=== PATIENT | female | born 1955 | race African-American/Black ===

== ENCOUNTER 2016-06-18 11:00 | Emergency (ER) | payer MEDICARE, OTHER ==
[~2016-06-18] VITALS: Ht 170.2 cm; Wt 180.1 kg
[~2016-06-18 11:00] MED LIST: ALBUTEROL2.5 MG/NEB IN; BACLOFEN 10MG T10 MG PO; BACTRIM DS 8001 TA1 PO; DEXAMETHASONE 4M4 MG PO; DULERA1 ARO IH; FLONASE 50 MCG16 GM; GABAPENTIN 600600 MG PO; GABAPENTIN300 M1 PO; HYDROCHLOROTHIA25 M1 PO; HYDROCODONE-APA1 TA1 PO; IBUPROFEN400 MG PO; IPRATROPIUM BROM3 M1 IH; KEFLEX500 M1 PO; LIPITOR40 MG PO; LISINOPRIL 10MG10 MG PO; LISINOPRIL HCTZ1 TAB PO; LORATADINE 10MG10 M1 PO; LOSARTAN POTAS100 MG PO; METFORMIN500 MG PO; PRILOSEC20 M1 PO; SINGULAIR10 MG PO; TYLENOL ES500 M1 PO; TYLENOL W/CODEI1 TA2 PO
--- NOTE | 2016-06-18 11:15 | Emergency Room Report ---
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 Clinical Suspician of Infection? Mental Status: Sepsis Risk: Have you (or family members/close friends) recently traveled outside the [place]? If Yes, where/when: Have you had exposure to infectious disease within the past month? TB? Other? Specify: Miss lam is 60 years old white female she is nondiabetic she was seen 2 days ago and was prescribed antibiotics, she started on this morning and she claims to be not better. Emesis was brought to the ED and her temperature is 99.1. Otherwise she has no specific complaints. Patient denies having fever nausea vomiting diarrhea but she just is not feeling well. Source patient, RN notes reviewed, caregiver ALLERGIES Coded Allergies: aspirin (06/16/16) latex (06/16/16) morphine (06/18/16) Home Medications Active Scripts SULFAMETHOXAZOLE W/TRIMETHOPRI (Bactrim Ds Tab) 1 TABLET PO BID #14 TAB Prov: 06/15/16 Reported Medications Fluticasone Propionate (Flonase 50 Mcg Nasal [place]) 1 SPRAY NA BID #1 BOT HYDROCODONE 5MG/APAP 325MG (Hydrocodon-Acetaminophen 5-325) 1 TAB PO TIDP PRN PAIN ALBUTEROL (Albuterol 0.083% Neb) 2.5 MG IN Q6H6 Gabapentin (Gabapentin 600MG) 600 MG PO QID IBUPROFEN MICRONIZED (IBUPROFEN 400MG) 400 MG PO Q6HP PRN PAIN HYDROCHLOROTHIAZIDE (Hydrochlorothiazide) 25 MG PO BID Dexamethasone (Dexamethasone 4MG Tab) 4 MG FT Atorvastatin Calcium (Lipitor 20MG) 40 MG PO DAILY OMEPRAZOLE MAGNESIUM (Prilosec 20MG) 20 MG PO DAILY ERGOCALCIFEROL (VITAMIN D2) (Vitamin D2) 50,000 IUNITS PO DAILY #5 FLUTICASONE/VILANTEROL (Breo Ellipta 100-25 Mcg INH) 1 POW IH DAILY ALBUTEROL (Ventolin Hfa) 1 PUFF IH Q6H6 PRN BREATHING Insulin Glargine (Lantus Insulin Vial) 60 UNITS SC DAILY Insulin Lispro (Humalog Kwikpen) 8 UNIT SQ AFTERMEALS PRN DIABETES History Medical History General Angina: No DC: No Hypertension? Yes Hyperlipidemia? Yes CHF? No COPD? No Asthma? Yes Hernia? Yes CVA? No Seizures? No Diabetes? Yes Insulin Dependent: No Insulin Pump: No Home FSBS? Yes End Stage Renal Disease? No UTI? Yes Stones? No GB Disease: No Nephritic Syndrome? No Asplenia? No Hepatitis? No Sickle Cell Disease? No Cataracts? No Glaucoma? No MRSA? No TB? No Cancer? Yes Immunization Hx DT/Tetanus Unknown Flu Refused Pneumonia Received In Past Surgical Hx Previous Surgery?Y UMBILICAL HERNIA CYST REMOVED LT BREAST D & C Family History Family Hx Diabetes Yes CAD Yes Hypertension Yes Hyperlipidemia Yes Cancer Yes TB No Social History Alcohol Alcohol: No Review of Systems All Other Systems Reviewed and Negative Constitutional see HPI Eyes no symptoms reported ENT no symptoms reported. Respiratory no symptoms reported Cardiovascular no symptoms reported Gastrointestinal no symptoms reported Genitourinary no symptoms reported. Musculoskeletal no symptoms reported Skin no symptoms reported Psychiatric/Neurological no symptoms reported Physical Exam Vital Signs Vital Signs Date Time Temp Pulse Resp B/P Pulse O2 O2 Flow FiO2 Ox Delivery Rate 06/18 1158 105 22 147/90 92 6 06/18 1101 99.1 107 22 137/97 90 6 - WBC >12,000 or <4,000 or 10% bands? 2 or more SIRS Criteria Met? B/P: MAP: Creatinine >2.0? UA output<0.5ml/kg/hr for 2 hrs? Platelet count >100,000? Lactate >2.0mmol/1? INR >1.2 or PTT > than 60 sec? Evidence of Organ Dysfunction? Provider documented clinical suspician of infection? Sepsis Criteria Count: Sepsis Risk: General Appearance normal appearance, WD/WN Eye Exam - bilateral eye normal exam, bilateral eye PERRL, bilateral eye EOMI Ear, Nose, Throat hearing grossly normal, normal ENT inspection Neck normal inspection, non-tender, supple, full range of motion Respiratory Status Yes: trachea midline, chest symmetrical, non tender chest. No: respiratory distress. Lung Sounds bilateral: normal breath sounds, lungs clear. Cardiovascular normal exam, regular rate/rhythm, no peripheral edema, no gallop, no JVD, no murmur, no rub, normal peripheral pulses Peripheral Pulses Pulses normal Yes Gastrointestinal normal bowel sounds, normal exam, non tender, soft, no organomegaly Neurologic alert, occupational health and safety adviser II-XII nml as tested, normal exam, oriented x 3 Skin intact, skin is intact she has some flakness in the middle line avoe the spine, There is no loss of skin. No bedsores seen at the sacral and gluteal region. Medical Decision Making LABS/Meds/Orders Pt receiving controlled substance in ED? No Results/Orders Laboratory Tests 06/18/16 1120: Lactic Acid 0.7 06/18/16 112: Sodium 144, Potassium 3.3 L, Chloride 100, Carbon Dioxide 44 *H, BUN 6 L, Creatinine 0.4 L, Estimated Creat Clear 415 H, Estimated GFR (MDRD) 162, Glucose 66 L, Calcium 8.9, Total Bilirubin 0.5, AST 7 L, ALT 16, Alkaline Phosphatase 58, Total Protein 6.1 L, Albumin 2.1 L, Globulin 4.0 H, Albumin/ Globulin Ratio 0.5 L, WBC 7.1, RBC 4.23, Hgb 12.1 L, Hct 38.7, MCV 91.5, RDW 12.9, Plt Count 264, MPV 6.1 L, Gran % 74.7, Gran # 5.3, Lymphocytes % 16.5, Monocytes % 6.6, Eosinophils % 2.0, Basophils % 0.2, Lymphocytes # 1.2, Monocytes # 0.5, Eosinophils # 0.1, Basophils # 0.0, PUBS MCHC 31.2 L, MCH 28.5 Current Medication Orders Sig/Gary Start time Last Medication Dose Route Stop Time Status Admin Potassium Chloride 40 MEQ ONCE ONE 06/18 1230 AC PO 06/18 1231 Sodium Chloride 500 ML .Q1H 06/18 1130 DC 06/18 IV 06/18 1229 1132 Sodium Chloride 10 ML PRN PRN 06/18 1130 AC IV 06/19 1119 Sodium Chloride 500 ML .STK-MED ONE 06/18 1129 DC IV Orders Procedure Date/time Status OP COURTSEY MEAL 06/18 1214 Active CULTURE, BLOOD 06/18 111 Active LACTIC ACID 06/18 111 Complete CBC WITH AUTO DIFF 06/18 1116 Complete CHEM 12 PROFILE 06/18 111 Complete Departure Departure Time of Disposition 1114 Disposition DC Home or Self Care(routine) Clinical Impression Primary Impression: UTI (urinary tract infection) Qualifiers: Urinary tract infection type: acute cystitis Secondary Impressions: Diabetes Qualifiers: Diabetes mellitus type: type 2 Non compliance w medication regimen Obesity Condition STABLE Referrals Ayden Barboza MD (Family) Additional Instructions The patient was here 2 days ago she was prescribed antibiotics that she obtained this morning and she started on them.. the patient lives alone with home health nurses. She is a candidate for fpc with pay. She has been trying to be admitted for 3 days so she can obtain Free fpc. Her labs were within normal limits and urine culture was positive for E. coli that sensitive to Bactrim and she already has the medicine. At this point the patient does not meet criteria for admission and she will be discharged back to her house. Discharge Counseling Counseled pt/family regarding diagnosis, test results, medications/RX, home care, follow up needs ED Critical Care Critical Care No If Critical Care minutes are documented, the time involved in the performance of seperately reportable procedures was not counted toward critical care time documented. I directly delivered medical care to this critically ill and/or injured patient. Timely evaluation and treatment was necessary to address the significant organ system(s) dysfunction present in this patient. at 1230
[2016-06-18] MEDS ORDERED: VITAMIN D50000 I1 PO (11:33)
[2016-06-18] MEDS ORDERED: BREO ELLIPTA1 POW IH (11:34)
[2016-06-18] MEDS ORDERED: VENTOLIN H0.09 MG/AC IH (11:35)
[2016-06-18 11:37] LABS: HEMOGLOBIN 12.1 g/dL (12.2-16.2); LYMPH # 1.2 K/mm3 (0.7-4.5); LYMPH % 16.5 % (10-50.0)
[2016-06-18] MEDS ORDERED: LANTUS INS100 UNITS/ SC (11:37)
[2016-06-18] MEDS ORDERED: HUMALOG KW100 UNIT/1 SQ (11:38)
[2016-06-18 14:01] VITALS: BP 160/85
[2016-06-25] MEDS ORDERED: HYDROCODONE-APA1 TA1 PO (08:40)
[2016-06-25] MEDS ORDERED: LASIX 40MG. TAB40 MG PO (08:40)
[2016-06-25] MEDS ORDERED: HYDROXYZINE 25M25 MG PO (08:40)
[2016-06-25] MEDS ORDERED: IPRATROPIUM BROM3 M1 IH (08:40)
[2016-06-25] MEDS ORDERED: KLOR-CON M2020 MEQ PO (12:45)
== END 2016-06-18 14:01 | disposition home or self-care (01) ==
LOC: ER 11:00
PROVIDERS: Emergency Medicine
DX: N30.00 Acute cystitis without hematuria (principal); E11.649 Type 2 diabetes mellitus with hypoglycemia without coma

== ENCOUNTER 2016-12-22 11:20 | Emergency (ER) | payer MEDICARE, OTHER ==
[~2016-12-22] VITALS: Ht 172.7 cm; Wt 190.5 kg
[~2016-12-22 11:20] MED LIST changes: +BREO ELLIPTA1 POW IH; +HUMALOG KW100 UNIT/1 SQ; +HYDROXYZINE 25M25 MG PO; +KLOR-CON M2020 MEQ PO; +LANTUS INS100 UNITS/ SC; +LASIX 40MG. TAB40 MG PO; +VENTOLIN H0.09 MG/AC IH; +VITAMIN D50000 I1 PO
--- NOTE | 2016-12-22 11:45 | Emergency Room Report ---
History of Present Illness Time Seen by [id number] Presenting Problem in Triage Pt arrived:Ambulance Stretcher Presenting Problem:PT SENT FROM [facility] WITH SOA. PT ADVISES SHE THINKS SHE HAS PNEUMONIA. SATS AT [facility] IN THE 80'S UPON ARRIVAL ON 4LPM SATS 95% Onset of symptoms date/time:/ or onset unknown for:MEDICAL HX UNKNOWN Treatment Prior to Arrival: PT O2 BUMPED FROM 3LPM TO 6LPM. ALBUTEROL TREATMENT GIVEN MOLD SETTER AT [facility] MOLD SETTER Provided by:GOLF MANAGER Sepsis Risk Assessment: Temp: B/P: 125/71 MAP: 89 Pulse: 99 Resp: 20 Recent fever? N Clinical Suspician of Infection? N Mental Status: 1 - Regular (Normal Baseline) Sepsis Risk:Possible Sepsis Risk Have you (or family members/close friends) recently traveled outside the [place]? N If Yes, where/when: Have you had exposure to infectious disease within the past month? N TB? Other? Specify: Source patient, RN notes reviewed, RN/MD, EMS notes reviewed, group home records Exam Limitations no limitations Comment This is a 61-year-old Afro-Chinese lady brought in by ambulance from group home with shortness of breath. intermediate staff believes that her pulse ox was in the 80s, prior to transfer to the emergency room. Upon arrival to the emergency room patient's pulse ox on 4 L/m (which patient is currently on) is 95 percent. Patient is only short of breath. Patient concerned that she may have pneumonia since she has had similar symptoms in the past associated with this diagnoses. ALLERGIES Coded Allergies: aspirin (06/16/16) latex (06/16/16) morphine (06/18/16) Home Medications Active Scripts Hydroxyzine Pamoate (Hydroxyzine) 25 MG PO Q6HP PRN ANXIETY #60 CAPSULE Prov: 06/25/16 HYDROCODONE 5MG/APAP 325MG (Hydrocodon-Acetaminophen 5-325) 1 TAB PO TIDP PRN PAIN #90 TAB Prov: 06/25/16 Furosemide (Lasix 40MG) 40 MG PO DAILY #30 TAB Prov: 06/25/16 ALBUTEROL-IPRATROPIUM (Iprat-Albut 0.5-3(2.5) MG/3 Ml) 3 ML IH QID #120 NEB Prov: 06/25/16 Potassium Chloride (Klor-Con M20) 20 MEQ PO BID #60 TAB Prov: 06/25/16 Reported Medications Dexamethasone (Dexamethasone 4MG Tab) 4 MG PO DAILY Atorvastatin Calcium (Atorvastatin) 40 MG PO QHS ERGOCALCIFEROL (VITAMIN D2) (Vitamin D2) 50,000 IUNITS PO MONTHLY #5 CAPSULE FLUTICASONE/VILANTEROL (Breo Ellipta 100-25 Mcg INH) 1 POW IH DAILY Insulin Glargine (Lantus Insulin Vial) 60 UNITS SC DAILY Fluticasone Propionate (Flonase 50 Mcg Nasal [place]) 1 SPRAY NA BID #1 BOT Gabapentin (Gabapentin 600MG) 600 MG PO QID IBUPROFEN MICRONIZED (IBUPROFEN 400MG) 400 MG PO Q6HP PRN PAIN OMEPRAZOLE MAGNESIUM (Prilosec 20MG) 20 MG PO DAILY History Medical History General CAD? No Angina: No MD: No Hypertension? Yes Hyperlipidemia? Yes CHF? No DVT? No PE? No COPD? No Asthma? Yes Anemia? No GERD? Yes Gastric ulcers? No GI Bleed? No Hernia? Yes Thyroid Problems? No Hypothyroidism? No CVA? No Seizures? No Diabetes? Yes Insulin Dependent: Yes Insulin Pump: No Home FSBS? Yes End Stage Renal Disease? No UTI? Yes Stones? No GB Disease: No Nephritic Syndrome? No Asplenia? No Hepatitis? No Sickle Cell Disease? No Arthritis? Yes Migraines? No Cataracts? No Glaucoma? No MRSA? No HIV? No TB? No Anxiety? No Depression? No Cancer? No Immunization Hx DT/Tetanus Unknown Flu Refused Pneumonia Never Had Surgical Hx Previous Surgery?Y UMBILICAL HERNIA CYST REMOVED LT BREAST D & C Family History Family Hx Diabetes Yes CAD Yes Hypertension Yes Hyperlipidemia Yes Cancer Yes TB No Social History Smoking Hx Smoker: Unknown if Ever Smoked Tobacco: No Packs/day N/A Alcohol Alcohol: No Review of Systems All Other Systems Reviewed and Negative Respiratory shortness of breath Physical Exam Vital Signs Vital Signs Date Time Temp Pulse Resp B/P Pulse O2 O2 Flow FiO2 Ox Delivery Rate 12/22 1423 85 20 122/60 95 4 12/22 1245 91 20 120/67 95 4 12/22 1121 99 20 125/71 95 6 General Appearance normal appearance, WD/WN, no apparent distress, morbidly obese, patient is bedridden, difficult to assess if she has any peripheral edema due to body habitus Neck normal inspection, non-tender, supple, full range of motion Respiratory Status Yes: trachea midline, chest symmetrical, non tender chest. No: respiratory distress. Lung Sounds bilateral: normal breath sounds, lungs clear. 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 No Comment Patient does not appear to be hypoxic despite initial group home assessment. Patient is actually no distress at current time. Advised patient of results obtained, consistent with congestive heart failure, needs to increase the Lasix per discharge instructions and follow-up with PCP within 2 days. Results/Orders Laboratory Tests 12/22/16 1240: Urine Color YELLOW, Urine Appearance CLEAR, Urine pH 8.5, Ur Specific [place] 1.015, Urine Protein NEGATIVE, Urine Ketones NEGATIVE, Urine Blood NEGATIVE, Urine Nitrate NEGATIVE, Urine Bilirubin NEGATIVE, Urine Urobilinogen 1.0, Ur Leukocyte Esterase NEGATIVE, Urine RBC NONE, Urine WBC OCC, Ur Squamous Epith Cells OCC, Urine Bacteria TRACE, Urine Glucose NEGATIVE 12/22/16 1130: Lactic Acid 1.2 12/22/16 1130: Creatine Kinase 51, CK-MB (CK-2) Rel Index 2.9, CK and CKMB Interp 1.5, Troponin I < 0.02 12/22/16 1130: B-Natriuretic Peptide 16 12/22/16 1130: Sodium 145, Potassium 3.8, Chloride 99, Carbon Dioxide 47 *H, BUN 10, Creatinine 0.5 L, Estimated Creat Clear 346 H, Estimated GFR (MDRD) 125, Glucose 145 H, Calcium 8.2 L, Total Bilirubin 0.4, AST 13 L, ALT 17, Alkaline Phosphatase 70, Total Protein 6.1 L, Albumin 2.8 L, Globulin 3.3 H, Albumin/Globulin Ratio 0.8 L, WBC 7.4, RBC 4.27, Hgb 11.8 L, Hct 39.4, MCV 92.2, RDW 12.9, Plt Count 246, MPV 7.5, Gran % 76.8, Gran # 5.7, Lymphocytes % 13.7, Monocytes % 5.2, Eosinophils % 3.8, Basophils % 0.5, Lymphocytes # 1.0, Monocytes # 0.4, Eosinophils # 0.3, Basophils # 0.0, PUBS MCHC 29.9 L, MCH 27.6 Current Medication Orders Sig/Gary Start time Last Medication Dose Route Stop Time Status Admin Hydromorphone HCl 0.25 MG ONCE ONE 12/22 1430 CANr IV 12/22 1431 Ondansetron HCl 4 MG ONCE ONE 12/22 1430 CAN IV 12/22 1431 Gabapentin 600 MG ONCE ONE 12/22 1400 CAN PO 12/22 1401 Hydrocodone Bitart/ 0.5 TAB ONCE ONE 12/22 1400 CANr Acetaminophen PO 12/22 1401 Sodium Chloride 10 ML PRN PRN 12/22 1130 DCD IV 12/23 1123 Orders Procedure Date/time Status OP COURTSEY MEAL 12/22 1259 Active URINARY CATHETER INSERT 12/22 1247 Active URINALYSIS/COMPLETE 12/22 1247 Complete ELECTROCARDIOGRAM REQUEST 12/22 1213 Active CARDIAC ENZYMES 12/22 1213 Complete BRAIN NATRIURETIC PEPTIDE 12/22 1211 Complete IV SALINE LOCK 12/22 1123 Active CULTURE, BLOOD 12/22 1123 Active LACTIC ACID 12/22 1123 Complete CBC WITH AUTO DIFF 12/22 1123 Complete CHEM 12 PROFILE 12/22 1123 Complete 12 LEAD EKG-MIROSLAVA (INITIAL) 12/22 UNK Active CM/EKG CM/territory account manager Rhythm Normal Sinus Rhythm Rate 88 Ectopy No Comments No acute ischemic changes EKG rate, NSR, rhythm, no evid. of ischemic chgs, no ectopy, normal QRS, normal [place], normal EKG, no EKG for comparison, non-spec. ST/Twave chgs, ST elevation, ST depression, LBBB, RBBB, ectopy, abnormal Q waves XRAY/CT/US XRAY/CT/US XRAY chest XR interpretation by reviewed by me Xray Results cardiac medically, mild congestive heart failure, per radiologist Departure Departure Time of Disposition 1330 Disposition DC Home or Self Care(routine) Clinical Impression Primary Impression: CHF exacerbation Qualifiers: Congestive heart failure type: systolic Qualified Code: I50.23 - Acute on chronic systolic (congestive) heart failure Condition STABLE Referrals Ayden Barboza MD (Family): 2 Days-Call Office if not better Juancarlos Rand MD: Tomorrow-Call Office Patient Instructions DI for Heart Failure Additional Instructions Please increase the Lasix from 40 mg 1x/day to 40mg one pill in AM, and 1/2 pill (20mg) in the afternoon for the next 3 days. Return to lasix 40mg daily afterwards. Please follow up with Dr Barboza within 2 days. Discharge Counseling Counseled pt/family regarding diagnosis, test results, medications/RX, home care, follow up needs Comment Please increase the Lasix from 40 mg 1x/day to 40mg one pill in AM, and 1/2 pill (20mg) in the afternoon for the next 3 days. Return to lasix 40mg daily afterwards. Please follow up with Dr Barboza within 2 days. ED Critical Care Critical Care No at [id number]
--- NOTE | 2016-12-22 11:45 | Emergency Room Report ---
History of Present Illness Time Seen by [id number] Presenting Problem in Triage Pt arrived:Ambulance Stretcher Presenting Problem:PT SENT FROM [facility] HOME WITH SOA. PT ADVISES SHE THINKS SHE HAS PNEUMONIA. SATS AT [facility] IN THE 80'S UPON ARRIVAL ON 4LPM SATS 95% Onset of symptoms date/time:/ or onset unknown for:MEDICAL HX UNKNOWN Treatment Prior to Arrival: PT O2 BUMPED FROM 3LPM TO 6LPM. ALBUTEROL TREATMENT GIVEN FOOD BROKER AT [facility] FOOD BROKER Provided by:CERTIFIED NUCLEAR MEDICINE TECHNOLOGIST Sepsis Risk Assessment: Temp: B/P: 125/71 MAP: 89 Pulse: 99 Resp: 20 Recent fever? N Clinical Suspician of Infection? N Mental Status: 1 - Regular (Normal Baseline) Sepsis Risk:Possible Sepsis Risk Have you (or family members/close friends) recently traveled outside the [place]? N If Yes, where/when: Have you had exposure to infectious disease within the past month? N TB? Other? Specify: Source patient, RN notes reviewed, RN/MD, EMS notes reviewed, intermediate records Exam Limitations no limitations Comment This is a 61-year-old Afro-Greek lady brought in by ambulance from intermediate with shortness of breath. [facility] staff believes that her pulse ox was in the 80s, prior to transfer to the emergency room. Upon arrival to the emergency room patient's pulse ox on 4 L/m (which patient is currently on) is 95 percent. Patient is only short of breath. Patient concerned that she may have pneumonia since she has had similar symptoms in the past associated with this diagnoses. ALLERGIES Coded Allergies: aspirin (06/16/16) latex (06/16/16) morphine (06/18/16) Home Medications Active Scripts Hydroxyzine Pamoate (Hydroxyzine) 25 MG PO Q6HP PRN ANXIETY #60 CAPSULE Prov: 06/25/16 HYDROCODONE 5MG/APAP 325MG (Hydrocodon-Acetaminophen 5-325) 1 TAB PO TIDP PRN PAIN #90 TAB Prov: 06/25/16 Furosemide (Lasix 40MG) 40 MG PO DAILY #30 TAB Prov: 06/25/16 ALBUTEROL-IPRATROPIUM (Iprat-Albut 0.5-3(2.5) MG/3 Ml) 3 ML IH QID #120 NEB Prov: 06/25/16 Potassium Chloride (Klor-Con M20) 20 MEQ PO BID #60 TAB Prov: 06/25/16 Reported Medications Dexamethasone (Dexamethasone 4MG Tab) 4 MG PO DAILY Atorvastatin Calcium (Atorvastatin) 40 MG PO QHS ERGOCALCIFEROL (VITAMIN D2) (Vitamin D2) 50,000 IUNITS PO MONTHLY #5 CAPSULE FLUTICASONE/VILANTEROL (Breo Ellipta 100-25 Mcg INH) 1 POW IH DAILY Insulin Glargine (Lantus Insulin Vial) 60 UNITS SC DAILY Fluticasone Propionate (Flonase 50 Mcg Nasal [place]) 1 SPRAY NA BID #1 BOT Gabapentin (Gabapentin 600MG) 600 MG PO QID IBUPROFEN MICRONIZED (IBUPROFEN 400MG) 400 MG PO Q6HP PRN PAIN OMEPRAZOLE MAGNESIUM (Prilosec 20MG) 20 MG PO DAILY History Medical History General CAD? No Angina: No [place]: No Hypertension? Yes Hyperlipidemia? Yes CHF? No DVT? No PE? No COPD? No Asthma? Yes Anemia? No GERD? Yes Gastric ulcers? No GI Bleed? No Hernia? Yes Thyroid Problems? No Hypothyroidism? No CVA? No Seizures? No Diabetes? Yes Insulin Dependent: Yes Insulin Pump: No Home FSBS? Yes End Stage Renal Disease? No UTI? Yes Stones? No GB Disease: No Nephritic Syndrome? No Asplenia? No Hepatitis? No Sickle Cell Disease? No Arthritis? Yes Migraines? No Cataracts? No Glaucoma? No MRSA? No HIV? No TB? No Anxiety? No Depression? No Cancer? No Immunization Hx DT/Tetanus Unknown Flu Refused Pneumonia Never Had Surgical Hx Previous Surgery?Y UMBILICAL HERNIA CYST REMOVED LT BREAST D & C Family History Family Hx Diabetes Yes CAD Yes Hypertension Yes Hyperlipidemia Yes Cancer Yes TB No Social History Smoking Hx Smoker: Unknown if Ever Smoked Tobacco: No Packs/day N/A Alcohol Alcohol: No Review of Systems All Other Systems Reviewed and Negative Respiratory shortness of breath Physical Exam Vital Signs Vital Signs Date Time Temp Pulse Resp B/P Pulse O2 O2 Flow FiO2 Ox Delivery Rate 12/22 1423 85 20 122/60 95 4 12/22 1245 91 20 120/67 95 4 12/22 1121 99 20 125/71 95 6 General Appearance normal appearance, WD/WN, no apparent distress, morbidly obese, patient is bedridden, difficult to assess if she has any peripheral edema due to body habitus Neck normal inspection, non-tender, supple, full range of motion Respiratory Status Yes: trachea midline, chest symmetrical, non tender chest. No: respiratory distress. Lung Sounds bilateral: normal breath sounds, lungs clear. 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 No Comment Patient does not appear to be hypoxic despite initial intermediate assessment. Patient is actually no distress at current time. Advised patient of results obtained, consistent with congestive heart failure, needs to increase the Lasix per discharge instructions and follow-up with PCP within 2 days. Results/Orders Laboratory Tests 12/22/16 1240: Urine Color YELLOW, Urine Appearance CLEAR, Urine pH 8.5, Ur Specific [place] 1.015, Urine Protein NEGATIVE, Urine Ketones NEGATIVE, Urine Blood NEGATIVE, Urine Nitrate NEGATIVE, Urine Bilirubin NEGATIVE, Urine Urobilinogen 1.0, Ur Leukocyte Esterase NEGATIVE, Urine RBC NONE, Urine WBC OCC, Ur Squamous Epith Cells OCC, Urine Bacteria TRACE, Urine Glucose NEGATIVE 12/22/16 1130: Lactic Acid 1.2 12/22/16 1130: Creatine Kinase 51, CK-MB (CK-2) Rel Index 2.9, CK and CKMB Interp 1.5, Troponin I < 0.02 12/22/16 1130: B-Natriuretic Peptide 16 12/22/16 1130: Sodium 145, Potassium 3.8, Chloride 99, Carbon Dioxide 47 *H, BUN 10, Creatinine 0.5 L, Estimated Creat Clear 346 H, Estimated GFR (MDRD) 125, Glucose 145 H, Calcium 8.2 L, Total Bilirubin 0.4, AST 13 L, ALT 17, Alkaline Phosphatase 70, Total Protein 6.1 L, Albumin 2.8 L, Globulin 3.3 H, Albumin/Globulin Ratio 0.8 L, WBC 7.4, RBC 4.27, Hgb 11.8 L, Hct 39.4, MCV 92.2, RDW 12.9, Plt Count 246, MPV 7.5, Gran % 76.8, Gran # 5.7, Lymphocytes % 13.7, Monocytes % 5.2, Eosinophils % 3.8, Basophils % 0.5, Lymphocytes # 1.0, Monocytes # 0.4, Eosinophils # 0.3, Basophils # 0.0, PUBS MCHC 29.9 L, MCH 27.6 Current Medication Orders Sig/Gary Start time Last Medication Dose Route Stop Time Status Admin Hydromorphone HCl 0.25 MG ONCE ONE 12/22 1430 CANr IV 12/22 1431 Ondansetron HCl 4 MG ONCE ONE 12/22 1430 CAN IV 12/22 1431 Gabapentin 600 MG ONCE ONE 12/22 1400 CAN PO 12/22 1401 Hydrocodone Bitart/ 0.5 TAB ONCE ONE 12/22 1400 CANr Acetaminophen PO 12/22 1401 Sodium Chloride 10 ML PRN PRN 12/22 1130 DCD IV 12/23 1123 Orders Procedure Date/time Status OP COURTSEY MEAL 12/22 1259 Active URINARY CATHETER INSERT 12/22 1247 Active URINALYSIS/COMPLETE 12/22 1247 Complete ELECTROCARDIOGRAM REQUEST 12/22 1213 Active CARDIAC ENZYMES 12/22 1213 Complete BRAIN NATRIURETIC PEPTIDE 12/22 1211 Complete IV SALINE LOCK 12/22 1123 Active CULTURE, BLOOD 12/22 1123 Active LACTIC ACID 12/22 1123 Complete CBC WITH AUTO DIFF 12/22 1123 Complete CHEM 12 PROFILE 12/22 1123 Complete 12 LEAD EKG-MIROSLAVA (INITIAL) 12/22 UNK Active CM/EKG CM/projector operator Rhythm Normal Sinus Rhythm Rate 88 Ectopy No Comments No acute ischemic changes EKG rate, NSR, rhythm, no evid. of ischemic chgs, no ectopy, normal QRS, normal TN, normal EKG, no EKG for comparison, non-spec. ST/Twave chgs, ST elevation, ST depression, LBBB, RBBB, ectopy, abnormal Q waves XRAY/CT/US XRAY/CT/US XRAY chest XR interpretation by reviewed by me Xray Results cardiac medically, mild congestive heart failure, per radiologist Departure Departure Time of Disposition 1330 Disposition DC Home or Self Care(routine) Clinical Impression Primary Impression: CHF exacerbation Qualifiers: Congestive heart failure type: systolic Qualified Code: I50.23 - Acute on chronic systolic (congestive) heart failure Condition STABLE Referrals Ayden Barboza MD (Family): 2 Days-Call Office if not better Juancarlos Rand MD: Tomorrow-Call Office Patient Instructions DI for Heart Failure Additional Instructions Please increase the Lasix from 40 mg 1x/day to 40mg one pill in AM, and 1/2 pill (20mg) in the afternoon for the next 3 days. Return to lasix 40mg daily afterwards. Please follow up with Dr Barboza within 2 days. Discharge Counseling Counseled pt/family regarding diagnosis, test results, medications/RX, home care, follow up needs Comment Please increase the Lasix from 40 mg 1x/day to 40mg one pill in AM, and 1/2 pill (20mg) in the afternoon for the next 3 days. Return to lasix 40mg daily afterwards. Please follow up with Dr Barboza within 2 days. ED Critical Care Critical Care No at [id number]
--- NOTE | 2016-12-22 11:54 | RADIOLOGY REPORT PS360 ---
CHEST-PORTABLE HISTORY: Shortness of air ORDERING PHYSICIAN: Barrett Ramos MD PATIENT AGE: 61 years COMPARISON: 06 20 16 FINDINGS: This exam is very limited technically due to patient's body habitus and the portable technique. There is cardiomegaly. There does appear to be pulmonary venous congestion. The lung mayorga are not adequately evaluated. IMPRESSION: Very limited exam suggesting mild CHF with incomplete evaluation of the lung mayorga.
[2016-12-22 12:02] LABS: HEMOGLOBIN 11.8 g/dL (12.2-16.2); LYMPH % 13.7 % (10-50.0)
[2016-12-22 13:04] LABS: URINE BILIRUBIN - DIPSTICK NEGATIVE (NEG); URINE BLOOD NEGATIVE (NEG)
[2016-12-22 13:12] LABS: URINE SQUAMOUS CELLS OCC #/hpf (0-5)
[2016-12-22 14:23] VITALS: BP 122/60
== END 2016-12-22 14:40 | disposition home or self-care (01) ==
LOC: ER 11:20
PROVIDERS: Emergency Medicine
DX: I50.23 Acute on chronic systolic (congestive) heart failure (principal); I10 Essential (primary) hypertension; K21.9 Gastro-esophageal reflux disease without esophagitis; E11.9 Type 2 diabetes mellitus without complications; Z79.4 Long term (current) use of insulin

== ENCOUNTER 2016-12-29 15:24 | Observation (INO) | payer MEDICARE, OTHER ==
[~2016-12-29] VITALS: Ht 172.7 cm; Wt 188.8 kg
[2016-12-29 15:31] VITALS: BP 115/85
[2016-12-29 15:48] LABS: URINE BILIRUBIN - DIPSTICK NEGATIVE (NEG); URINE BLOOD 1+ (NEG)
[2016-12-29 16:06] LABS: URINE SQUAMOUS CELLS OCC #/hpf (0-5)
--- NOTE | 2016-12-29 16:30 | Emergency Room Report ---
History of Present Illness Time Seen by [id number] Presenting Problem in Triage Pt arrived:Ambulance Stretcher Presenting Problem:PT PRESENTS COURTESY OF HER PCP'S SUPPLY AND DISTRIBUTION MANAGER-TOMASA PINEDA. ACCORDING TO JOHNNY-THE NURSE-; THERE HAS BEEN PROGRESSIVE SWELLING THROUGHOUT THE DAY TODAY. PT WAS RECENTLY DIAGNOSED WITH UTI,IS CURRENTLY ON LEVAQUIN AND NOW RECEIVED FIRST DOSE OF CLINDAMYCIN TODAY TO COMBAT UA CULTURE RESULTS; PT IS ALERT, ORIENTED AND ANSWERING ALL QUESTIONS APPROPRIATELY. STATES THE REASON SHE IS SWOLLEN IS BECAUSE " THEY WON'T PROP ME UP LIKE I TELL THEM TO". NOTED EDEMA TO BILATERAL UPPER EXTREMITIES. NO PITTING. NOTED EDEMA TO BILATERAL LOWER EXTREMITIES. 1+ PITTING. PT IS CONSIDERED TO BE B[place]RIDDEN AT [place], AND REFUSES TO FEED OR ASSIST WITH OWN CARE. WANTS TO BE TRANSFERRED TO IF POSSIBLE. OXYGEN PLACED TO PT AFTER ARRIVAL. 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 N Clinical Suspician of Infection? N Mental Status: 1 - Regular (Normal Baseline) Sepsis Risk:Possible Sepsis Risk Have you (or family members/close friends) recently traveled outside the [place]? N If Yes, where/when: Have you had exposure to infectious disease within the past month? TB? Other? Specify: I read the above history and I agree. 61 years old -[place]ian female with multiple medical problems who presented with generalized anasarca. She denies shortness of breath cough congestion fever or chills she denies having chest pain palpitations abdominal pain nausea vomiting or diarrhea. She has an indwelling catheter and she complains GENITAL pain because of the catheter. She is currently on 2 antibiotics for a UTI. She is DNR per longterm records. Source patient, RN notes reviewed, longterm records Exam Limitations no limitations ALLERGIES Coded Allergies: aspirin (12/29/16) latex (12/29/16) morphine (12/29/16) Home Medications Active Scripts Hydroxyzine Pamoate (Hydroxyzine) 25 MG PO Q6HP PRN ANXIETY #60 CAPSULE Prov: 06/25/16 HYDROCODONE 5MG/APAP 325MG (Hydrocodon-Acetaminophen 5-325) 1 TAB PO TIDP PRN PAIN #90 TAB Prov: 06/25/16 Furosemide (Lasix 40MG) 40 MG PO DAILY #30 TAB Prov: 06/25/16 ALBUTEROL-IPRATROPIUM (Iprat-Albut 0.5-3(2.5) MG/3 Ml) 3 ML IH QID #120 NEB Prov: 06/25/16 Potassium Chloride (Klor-Con M20) 20 MEQ PO BID #60 TAB Prov: 06/25/16 Reported Medications Dexamethasone (Dexamethasone 4MG Tab) 4 MG PO DAILY Atorvastatin Calcium (Atorvastatin) 40 MG PO QHS ERGOCALCIFEROL (VITAMIN D2) (Vitamin D2) 50,000 IUNITS PO MONTHLY #5 CAPSULE FLUTICASONE/VILANTEROL (Breo Ellipta 100-25 Mcg INH) 1 POW IH DAILY Insulin Glargine (Lantus Insulin Vial) 60 UNITS SC DAILY Fluticasone Propionate (Flonase 50 Mcg Nasal [place]) 1 SPRAY NA BID #1 BOT Gabapentin (Gabapentin 600MG) 600 MG PO QID IBUPROFEN MICRONIZED (IBUPROFEN 400MG) 400 MG PO Q6HP PRN PAIN OMEPRAZOLE MAGNESIUM (Prilosec 20MG) 20 MG PO DAILY History Medical History General CAD? No Angina: No MA: No Hypertension? Yes Hyperlipidemia? Yes CHF? No DVT? No PE? No COPD? No Asthma? Yes Anemia? No GERD? Yes Gastric ulcers? No GI Bleed? No Hernia? Yes Thyroid Problems? No Hypothyroidism? No CVA? No Seizures? No Diabetes? Yes Insulin Dependent: Yes Insulin Pump: No Home FSBS? Yes End Stage Renal Disease? No UTI? Yes Stones? No GB Disease: No Nephritic Syndrome? No Asplenia? No Hepatitis? No Sickle Cell Disease? No Arthritis? Yes Migraines? No Cataracts? No Glaucoma? No MRSA? No HIV? No TB? No Anxiety? No Depression? No Cancer? No Immunization Hx Ped.Immunizations UTD Yes DT/Tetanus Unknown Flu Refused Pneumonia Never Had Surgical Hx Previous Surgery?Y UMBILICAL HERNIA CYST REMOVED LT BREAST D & C Family History Family Hx Diabetes Yes CAD Yes Hypertension Yes Hyperlipidemia Yes Cancer Yes TB No Social History Smoking Hx Smoker: Unknown if Ever Smoked Tobacco: No Type N/A Packs/day N/A Are you/the child exposed to second-hand smoke: No Alcohol Alcohol: No Review of Systems All Other Systems Reviewed and Negative Constitutional no symptoms reported Eyes no symptoms reported ENT no symptoms reported. Respiratory no symptoms reported Cardiovascular no symptoms reported Gastrointestinal no symptoms reported Genitourinary see HPI, pain, pelvic pain. Musculoskeletal no symptoms reported Skin see HPI Psychiatric/Neurological no symptoms reported Physical Exam Vital Signs Vital Signs Date Time Temp Pulse Resp B/P Pulse O2 O2 Flow FiO2 Ox Delivery Rate 12/29 1531 97.6 91 26 115/85 77 - WBC >12,000 or <4,000 or 10% bands? 2 or more SIRS Criteria Met? B/P:115/85 MAP:95 Creatinine >2.0? UA output<0.5ml/kg/hr for 2 hrs? Platelet count >100,000? Lactate >2.0mmol/1? INR >1.2 or PTT > than 60 sec? Evidence of Organ Dysfunction? Provider documented clinical suspician of infection? N Sepsis Criteria Count: 2 Sepsis Risk: Possible Sepsis Risk General Appearance normal appearance, WD/WN Eye Exam - bilateral eye normal exam, bilateral eye PERRL, bilateral eye EOMI Ear, Nose, Throat hearing grossly normal, normal ENT inspection Neck normal inspection, non-tender, supple, full range of motion Respiratory Status Yes: trachea midline, chest symmetrical, non tender chest. No: respiratory distress. Lung Sounds bilateral: normal breath sounds, lungs clear. 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 No Results/Orders Laboratory Tests 12/29/16 1615: B-Natriuretic Peptide 38 12/29/16 1615: Sodium 135 L, Potassium 4.5, Chloride 109 H, Carbon Dioxide 46 *H, BUN 12, Creatinine 0.5 L, Estimated Creat Clear 341 H, Estimated GFR (MDRD) 125, Glucose 287 H, Calcium 8.6, Total Bilirubin 0.4, AST 14 L, ALT 18, Alkaline Phosphatase 74, Creatine Kinase 52, CK-MB (CK-2) Rel Index 4.8 H, CK and CKMB Interp 2.5, Troponin I < 0.02, Total Protein 5.8 L, Albumin 2.7 L, Globulin 3.1, Albumin/Globulin Ratio 0.9 L, WBC 7.1, RBC 3.93 L, Hgb 11.1 L, Hct 36.7 L, MCV 93.2, RDW 12.8, Plt Count 233, MPV 7.8, Gran % 89.6 H, Gran # 6.3, Total Counted 100, Lymphocytes % 5.6 L, Monocytes % 3.9, Eosinophils % 0.6, Basophils % 0.3, Neutrophils 89 H, Lymphocytes (Manual) 6 L, Lymphocytes # 0.4 L, Monocytes (Manual) 2, Monocytes # 0.3, Eosinophils # 0.0, Eosinophils # (Manual) 1, Basophils # 0.0, Atypical Lymphocytes 2, Platelet Estimate NORMAL, Hypochromasia 2+, Stomatocytes 1+, PUBS MCHC 30.4 L, MCH 28.3 12/29/16 1544: Urine Color YELLOW, Urine Appearance CLOUDY, Urine pH 6.0, Ur Specific [place] 1.015, Urine Protein NEGATIVE, Urine Ketones NEGATIVE, Urine Blood 1+ H, Urine Nitrate POSITIVE H, Urine Bilirubin NEGATIVE, Urine Urobilinogen 1.0, Ur Leukocyte Esterase 1+ H, Urine RBC NONE, Urine WBC 5-10, Ur Squamous Epith Cells OCC, Amorphous Sediment 2+, Urine Bacteria 3+, Urine Glucose 3+ H Current Medication Orders Sig/Gary Start time Last Medication Dose Route Stop Time Status Admin Sodium Chloride 10 ML PRN PRN 12/29 1530 AC IV 12/30 1525 Orders Procedure Date/time Status DIFFERENTIAL-WBC 12/29 1615 Complete CULTURE, URINE 12/29 1544 Active ELECTROCARDIOGRAM REQUEST 12/29 1527 Active CHEST-PORTABLE 12/29 152 Active IV SALINE LOCK 12/29 152 Active URINALYSIS/COMPLETE 12/29 152 Complete CBC WITH AUTO DIFF 12/29 152 Complete CARDIAC ENZYMES 12/29 152 Complete CHEM 12 PROFILE 12/29 152 Complete BRAIN NATRIURETIC PEPTIDE 12/29 1527 Complete 12 LEAD EKG-MIROSLAVA (INITIAL) 12/29 UNK Active CM/EKG CM/EKG EKG normal sinus 89/ minutes , prolonged qtc 493 tihout acute findings Departure Departure Time of Disposition 1625 Disposition Still a Patient Clinical Impression Primary Impression: Generalized edema Secondary Impressions: UTI (urinary tract infection) Condition STABLE Referrals Tamra TRIPATHI,Ayden Rosas (Family) Additional Instructions IDISCUSSED WITHTHE PATIENT THE NEED FOR ADMSSION FOR ALBUMIN TRANSFUSIION DUE TO HER GENERALIZED ANASARCA AND SHE AGREED. I DISCUSSED WITH DR ESCUDERO WHO AGREED TOADMIT HER. Discharge Counseling Counseled pt/family regarding diagnosis, test results ED Critical Care Critical Care No If Critical Care minutes are documented, the time involved in the performance of seperately reportable procedures was not counted toward critical care time documented. I directly delivered medical care to this critically ill and/or injured patient. Timely evaluation and treatment was necessary to address the significant organ system(s) dysfunction present in this patient. at [id number]
--- NOTE | 2016-12-29 16:30 | Emergency Room Report ---
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 ACCORDING TO JOHNNY-THE NURSE-; THERE HAS BEEN PROGRESSIVE SWELLING THROUGHOUT THE DAY TODAY. PT WAS RECENTLY DIAGNOSED WITH UTI,IS CURRENTLY ON LEVAQUIN AND NOW RECEIVED FIRST DOSE OF CLINDAMYCIN TODAY TO COMBAT UA CULTURE RESULTS; PT IS ALERT, ORIENTED AND ANSWERING ALL QUESTIONS APPROPRIATELY. STATES THE REASON SHE IS SWOLLEN IS BECAUSE " THEY WON'T PROP ME UP LIKE I TELL THEM TO". NOTED EDEMA TO BILATERAL UPPER EXTREMITIES. NO PITTING. NOTED EDEMA TO BILATERAL LOWER EXTREMITIES. 1+ PITTING. PT IS CONSIDERED TO BE B[place]RIDDEN AT [place], AND REFUSES TO FEED OR ASSIST WITH OWN CARE. WANTS TO BE TRANSFERRED TO IF POSSIBLE. OXYGEN PLACED TO PT AFTER ARRIVAL. INITIAL SAT IS A RECORDED Onset of symptoms date/time:/ or onset unknown for:MEDICAL HX UNKNOWN Treatment Prior to Arrival: INCR OXYGEN DURING TRANSPORT COMPUTER TYPESETTER Provided by:EMS Sepsis Risk Assessment: Temp: 97.6 B/P: 115/85 MAP: 95 Pulse: 91 Resp: 26 Recent fever? N Clinical Suspician of Infection? N Mental Status: 1 - Regular (Normal Baseline) Sepsis Risk:Possible Sepsis Risk Have you (or family members/close friends) recently traveled outside the [place]? N If Yes, where/when: Have you had exposure to infectious disease within the past month? TB? Other? Specify: I read the above history and I agree. 61 years old -[place] female with multiple medical problems who presented with generalized anasarca. She denies shortness of breath cough congestion fever or chills she denies having chest pain palpitations abdominal pain nausea vomiting or diarrhea. She has an indwelling catheter and she complains GENITAL pain because of the catheter. She is currently on 2 antibiotics for a UTI. She is DNR per detention records. Source patient, RN notes reviewed, detention records Exam Limitations no limitations ALLERGIES Coded Allergies: aspirin (12/29/16) latex (12/29/16) morphine (12/29/16) Home Medications Active Scripts Hydroxyzine Pamoate (Hydroxyzine) 25 MG PO Q6HP PRN ANXIETY #60 CAPSULE Prov: 06/25/16 HYDROCODONE 5MG/APAP 325MG (Hydrocodon-Acetaminophen 5-325) 1 TAB PO TIDP PRN PAIN #90 TAB Prov: 06/25/16 Furosemide (Lasix 40MG) 40 MG PO DAILY #30 TAB Prov: 06/25/16 ALBUTEROL-IPRATROPIUM (Iprat-Albut 0.5-3(2.5) MG/3 Ml) 3 ML IH QID #120 NEB Prov: 06/25/16 Potassium Chloride (Klor-Con M20) 20 MEQ PO BID #60 TAB Prov: 06/25/16 Reported Medications Dexamethasone (Dexamethasone 4MG Tab) 4 MG PO DAILY Atorvastatin Calcium (Atorvastatin) 40 MG PO QHS ERGOCALCIFEROL (VITAMIN D2) (Vitamin D2) 50,000 IUNITS PO MONTHLY #5 CAPSULE FLUTICASONE/VILANTEROL (Breo Ellipta 100-25 Mcg INH) 1 POW IH DAILY Insulin Glargine (Lantus Insulin Vial) 60 UNITS SC DAILY Fluticasone Propionate (Flonase 50 Mcg Nasal [place]) 1 SPRAY NA BID #1 BOT Gabapentin (Gabapentin 600MG) 600 MG PO QID IBUPROFEN MICRONIZED (IBUPROFEN 400MG) 400 MG PO Q6HP PRN PAIN OMEPRAZOLE MAGNESIUM (Prilosec 20MG) 20 MG PO DAILY History Medical History General CAD? No Angina: No MS: No Hypertension? Yes Hyperlipidemia? Yes CHF? No DVT? No PE? No COPD? No Asthma? Yes Anemia? No GERD? Yes Gastric ulcers? No GI Bleed? No Hernia? Yes Thyroid Problems? No Hypothyroidism? No CVA? No Seizures? No Diabetes? Yes Insulin Dependent: Yes Insulin Pump: No Home FSBS? Yes End Stage Renal Disease? No UTI? Yes Stones? No GB Disease: No Nephritic Syndrome? No Asplenia? No Hepatitis? No Sickle Cell Disease? No Arthritis? Yes Migraines? No Cataracts? No Glaucoma? No MRSA? No HIV? No TB? No Anxiety? No Depression? No Cancer? No Immunization Hx Ped.Immunizations UTD Yes DT/Tetanus Unknown Flu Refused Pneumonia Never Had Surgical Hx Previous Surgery?Y UMBILICAL HERNIA CYST REMOVED LT BREAST D & C Family History Family Hx Diabetes Yes CAD Yes Hypertension Yes Hyperlipidemia Yes Cancer Yes TB No Social History Smoking Hx Smoker: Unknown if Ever Smoked Tobacco: No Type N/A Packs/day N/A Are you/the child exposed to second-hand smoke: No Alcohol Alcohol: No Review of Systems All Other Systems Reviewed and Negative Constitutional no symptoms reported Eyes no symptoms reported ENT no symptoms reported. Respiratory no symptoms reported Cardiovascular no symptoms reported Gastrointestinal no symptoms reported Genitourinary see HPI, pain, pelvic pain. Musculoskeletal no symptoms reported Skin see HPI Psychiatric/Neurological no symptoms reported Physical Exam Vital Signs Vital Signs Date Time Temp Pulse Resp B/P Pulse O2 O2 Flow FiO2 Ox Delivery Rate 12/29 1531 97.6 91 26 115/85 77 - WBC >12,000 or <4,000 or 10% bands? 2 or more SIRS Criteria Met? B/P:115/85 MAP:95 Creatinine >2.0? UA output<0.5ml/kg/hr for 2 hrs? Platelet count >100,000? Lactate >2.0mmol/1? INR >1.2 or PTT > than 60 sec? Evidence of Organ Dysfunction? Provider documented clinical suspician of infection? N Sepsis Criteria Count: 2 Sepsis Risk: Possible Sepsis Risk General Appearance normal appearance, WD/WN Eye Exam - bilateral eye normal exam, bilateral eye PERRL, bilateral eye EOMI Ear, Nose, Throat hearing grossly normal, normal ENT inspection Neck normal inspection, non-tender, supple, full range of motion Respiratory Status Yes: trachea midline, chest symmetrical, non tender chest. No: respiratory distress. Lung Sounds bilateral: normal breath sounds, lungs clear. Cardiovascular normal exam, regular rate/rhythm, no peripheral edema, no gallop, no JVD, no murmur, no rub, normal peripheral pulses Peripheral Pulses Pulses normal Yes Gastrointestinal normal bowel sounds (obese abdomen soft and benign), normal exam, non tender, soft, no organomegaly, indwelling urinary catheter Extremities swelling (3 plus edema of all extremitie) Neurologic alert, yard jacker II-XII nml as tested, normal exam, oriented x 3 Medical Decision Making LABS/Meds/Orders Pt receiving controlled substance in ED? No Results/Orders Laboratory Tests 12/29/16 1615: B-Natriuretic Peptide 38 12/29/16 1615: Sodium 135 L, Potassium 4.5, Chloride 109 H, Carbon Dioxide 46 *H, BUN 12, Creatinine 0.5 L, Estimated Creat Clear 341 H, Estimated GFR (MDRD) 125, Glucose 287 H, Calcium 8.6, Total Bilirubin 0.4, AST 14 L, ALT 18, Alkaline Phosphatase 74, Creatine Kinase 52, CK-MB (CK-2) Rel Index 4.8 H, CK and CKMB Interp 2.5, Troponin I < 0.02, Total Protein 5.8 L, Albumin 2.7 L, Globulin 3.1, Albumin/Globulin Ratio 0.9 L, WBC 7.1, RBC 3.93 L, Hgb 11.1 L, Hct 36.7 L, MCV 93.2, RDW 12.8, Plt Count 233, MPV 7.8, Gran % 89.6 H, Gran # 6.3, Total Counted 100, Lymphocytes % 5.6 L, Monocytes % 3.9, Eosinophils % 0.6, Basophils % 0.3, Neutrophils 89 H, Lymphocytes (Manual) 6 L, Lymphocytes # 0.4 L, Monocytes (Manual) 2, Monocytes # 0.3, Eosinophils # 0.0, Eosinophils # (Manual) 1, Basophils # 0.0, Atypical Lymphocytes 2, Platelet Estimate NORMAL, Hypochromasia 2+, Stomatocytes 1+, PUBS MCHC 30.4 L, MCH 28.3 12/29/16 1544: Urine Color YELLOW, Urine Appearance CLOUDY, Urine pH 6.0, Ur Specific [place] 1.015, Urine Protein NEGATIVE, Urine Ketones NEGATIVE, Urine Blood 1+ H, Urine Nitrate POSITIVE H, Urine Bilirubin NEGATIVE, Urine Urobilinogen 1.0, Ur Leukocyte Esterase 1+ H, Urine RBC NONE, Urine WBC 5-10, Ur Squamous Epith Cells OCC, Amorphous Sediment 2+, Urine Bacteria 3+, Urine Glucose 3+ H Current Medication Orders Sig/Gary Start time Last Medication Dose Route Stop Time Status Admin Sodium Chloride 10 ML PRN PRN 12/29 1530 AC IV 12/30 1525 Orders Procedure Date/time Status DIFFERENTIAL-WBC 12/29 1615 Complete CULTURE, URINE 12/29 1544 Active ELECTROCARDIOGRAM REQUEST 12/29 1527 Active CHEST-PORTABLE 12/29 152 Active IV SALINE LOCK 12/29 152 Active URINALYSIS/COMPLETE 12/29 152 Complete CBC WITH AUTO DIFF 12/29 152 Complete CARDIAC ENZYMES 12/29 152 Complete CHEM 12 PROFILE 12/29 152 Complete BRAIN NATRIURETIC PEPTIDE 12/29 1527 Complete 12 LEAD EKG-MIROSLAVA (INITIAL) 12/29 UNK Active CM/EKG CM/EKG EKG normal sinus 89/ minutes , prolonged qtc 493 tihout acute findings Departure Departure Time of Disposition 1625 Disposition Still a Patient Clinical Impression Primary Impression: Generalized edema Secondary Impressions: UTI (urinary tract infection) Condition STABLE Referrals Tamra TRIPATHI,Ayden Rosas (Family) Additional Instructions IDISCUSSED WITHTHE PATIENT THE NEED FOR ADMSSION FOR ALBUMIN TRANSFUSIION DUE TO HER GENERALIZED ANASARCA AND SHE AGREED. I DISCUSSED WITH DR ESCUDERO WHO AGREED TOADMIT HER. Discharge Counseling Counseled pt/family regarding diagnosis, test results ED Critical Care Critical Care No If Critical Care minutes are documented, the time involved in the performance of seperately reportable procedures was not counted toward critical care time documented. I directly delivered medical care to this critically ill and/or injured patient. Timely evaluation and treatment was necessary to address the significant organ system(s) dysfunction present in this patient. at [id number]
[2016-12-29 16:36] LABS: HEMOGLOBIN 11.1 g/dL (12.2-16.2); LYMPH # 0.4 K/mm3 (0.7-4.5); LYMPH % 5.6 % (10-50.0)
[2016-12-29 17:08] LABS: BUN 12 mg/dL (7-18)
[2016-12-29 17:09] LABS: GFR (ESTIMATED) 125 ML/MIN (59-)
[2016-12-29 17:35] LABS: NEUTROPHILS 89 % (42-76)
[2016-12-29 17:39] LABS: STOMATOCYTE 1+
[2016-12-29 18:54] VITALS: BP 133/58
[2016-12-29 19:56] VITALS: BP 130/60
[2016-12-29 19:58] VITALS: BP 130/60
--- NOTE | 2016-12-29 20:25 | RADIOLOGY REPORT PS360 ---
CHEST-PORTABLE HISTORY: CHF ORDERING PHYSICIAN: Syd Ruiz MD PATIENT AGE: 61 years COMPARISON: 12/22/2016 FINDINGS: Very Limited exam. Cardiomegaly with underpenetration of the lungs. Cannot exclude acute process such as atelectasis infiltrate or edema on the right. IMPRESSION: Very limited, acute pathology not excluded
--- NOTE | 2016-12-29 21:41 | ACUTE CARE PROGRESS NOTE (QUA) ---
Progress Notes Subjective Date 12/29/16 Time 2126 Note Patient was sent from [facility] with complaints of increased swelling and "hurting all over". She was worked up in the emergency room with essentially normal laboratory evaluation. ER physician documented 3+ edema with normal kidney function and low albumin of 2.7. Her BNP was normal. Echo earlier this year showed preserved LV function. His assessment was that her edema was related to hypoproteinemia and recommended admission for IV albumin. Objective Findings Laboratory Tests 12/29/16 1615: B-Natriuretic Peptide 38 12/29/16 1615: Sodium 135 L, Potassium 4.5, Chloride 109 H, Carbon Dioxide 46 *H, BUN 12, Creatinine 0.5 L, Estimated Creat Clear 341 H, Estimated GFR (MDRD) 125, Glucose 287 H, Calcium 8.6, Total Bilirubin 0.4, AST 14 L, ALT 18, Alkaline Phosphatase 74, Creatine Kinase 52, CK-MB (CK-2) Rel Index 4.8 H, CK and CKMB Interp 2.5, Troponin I < 0.02, Total Protein 5.8 L, Albumin 2.7 L, Globulin 3.1, Albumin/Globulin Ratio 0.9 L, WBC 7.1, RBC 3.93 L, Hgb 11.1 L, Hct 36.7 L, MCV 93.2, RDW 12.8, Plt Count 233, MPV 7.8, Gran % 89.6 H, Gran # 6.3, Total Counted 100, Lymphocytes % 5.6 L, Monocytes % 3.9, Eosinophils % 0.6, Basophils % 0.3, Neutrophils 89 H, Lymphocytes (Manual) 6 L, Lymphocytes # 0.4 L, Monocytes (Manual) 2, Monocytes # 0.3, Eosinophils # 0.0, Eosinophils # (Manual) 1, Basophils # 0.0, Atypical Lymphocytes 2, Platelet Estimate NORMAL, Hypochromasia 2+, Stomatocytes 1+, PUBS MCHC 30.4 L, MCH 28.3 12/29/16 1544: Urine Color YELLOW, Urine Appearance CLOUDY, Urine pH 6.0, Ur Specific [place] 1.015, Urine Protein NEGATIVE, Urine Ketones NEGATIVE, Urine Blood 1+ H, Urine Nitrate POSITIVE H, Urine Bilirubin NEGATIVE, Urine Urobilinogen 1.0, Ur Leukocyte Esterase 1+ H, Urine RBC NONE, Urine WBC 5-10, Ur Squamous Epith Cells OCC, Amorphous Sediment 2+, Urine Bacteria 3+, Urine Glucose 3+ H Microbiology 12/29 1544 URINE CC: Urine Culture - RECD Last VS-Temp:97.6 B/P:130/60 Pulse:81 Resp:20 SaO2:98 OXYGEN Last weight lbs:416 oz:2 K.754 Method:Bed Scales Exam General appearance: alert, no acute distress, morbidly obese Eyes: anicteric Cardiovascular: heart tones distant but regular Respiratory: generally diminished anteriorly but clear ABD: morbidly obese Extremities: 3+ edema of upper and lower extremeties Skin: dry, warm Neuro: right arm weakness Reviewed: allergies, medications, vital signs, lab results, radiology report Assessment/Plan Problem List 1. Hypoproteinemia 2. Generalized edema 3. UTI (urinary tract infection) 4. Intracranial meningioma Status: Chronic 5. Morbid obesity 6. Right arm weakness 7. IDDM (insulin dependent diabetes mellitus) Patient condition Stable Plan: Will proceed with Albumin infusion as initiated by Dr. Ruiz. She recieved dose of Levaquin at [place] today for her UTI and this will be continued. Urine culture is pending. This inpt stay is expected to cross 2 MNs from start of care No at [id number]
[2016-12-29] MEDS ORDERED: HYDRALAZINE HCL25 M1 PO (22:40)
[2016-12-29] MEDS ORDERED: LEVOFLOXACIN 5500 M1 PO (22:41)
[2016-12-29] MEDS ORDERED: CLINDAMYCIN HC300 MG PO (22:42)
[2016-12-30 04:53] VITALS: BP 121/72
[2016-12-30] MEDS ORDERED: REMEDY WITH OL118 ML TP (05:50)
--- NOTE | 2016-12-30 07:44 | PHARMACY CLINIC NOTE ---
Patient Demographics Patient Demographics Admission date: 12/29/16 Date: 12/30/16 Time: 0744 Allergies Coded Allergies: aspirin (12/29/16) latex (12/29/16) morphine (12/29/16) HEIGHT- FT: 5 IN: 8.00 K.754 VTE General Information Labs: Laboratory Tests 12/29 1615 Hematology Hgb (12.2 - 16.2 g/dL) 11.1 L Hct (37.0 - 47.0 %) 36.7 L Plt Count (142 - 424 K/mm3) 233 Disclaimer The following section includes nursing documentation that has been pulled in for pharmacy review. Patient's VTE score: 6 Patient's VTE Risk: MOD RISK Clinical trial participant? No VTE prophylaxis NQF [id number] VTE prophylaxis ordered? Yes Type of prophylaxis/treatment: OSWALD at 0744
[2016-12-30 08:00] VITALS: BP 129/69
[2016-12-30] MEDS ORDERED: FLORASTOR250 M1 PO (08:53)
[2016-12-30] MEDS ORDERED: BREO ELLIPTA1 POW IH (08:54)
[2016-12-30] MEDS ORDERED: LASIX 40MG. TAB40 MG PO (08:55)
--- NOTE | 2016-12-30 09:03 | HISTORY AND PHYSICAL REPORT ---
History and Physical ([facility]) Date of admission: 12/29/16 Chief complaint: generalized body edema; hurting all over History: History of Present Illness: Ms Diaz is a 61 year old female with a history of morbid obesity, DM, HTN, sleep apnea, CHF, GERD, chronic pain , and COPD who was sent from [facility] with complaints of increased swelling and "hurting all over". Family was insistent that she be seen. Patient states that she has not felt well for about 2 weeks. She has experience gradual decrease in mobility of her arms and hands and has not been able to feed herself. She was seen in the ER 1 week ago and returned back to . She continued to feel badly and had additional labs done which revealed a UTI. Culture showed Klebsiella and she was started on Levaquin. She continued to feel badly with stable VS and was afebrile. She was again worked up in the emergency room with essentially normal laboratory evaluation. ER physician documented 3+ edema with normal kidney function and low albumin of 2.7. Her BNP was normal. Echo earlier this year showed preserved LV function. His assessment was that her edema was related to hypoproteinemia and recommended admission for IV albumin. She was thus admitted. This AM she is feeling better. She did not sleep much. Breathing is at baseline; She denies any chest pain, nausea, or diarrhea. She had a normal stool 2 days ago. She has had to be fed and has been eating normally. Past Medical History: Medical History: CAD? No Angina: No SD: No Hypertension? Yes Hyperlipidemia? Yes CHF? Yes DVT? No PE? No COPD? No Asthma? Yes Anemia? No GERD? Yes Gastric ulcers? No GI Bleed? No Hernia? Yes Thyroid Problems? No Hypothyroidism? No CVA? No Seizures? No Diabetes? Yes Insulin Dependent: Yes Insulin Pump: No Home FSBS? Yes UTI? Yes Stones? No GB Disease: No Nephritic Syndrome? No Asplenia? No Hepatitis? No Sickle Cell Disease? No Arthritis? Yes Migraines? No Cataracts? No Glaucoma? No MRSA? No HIV? No TB? No Anxiety? Yes Depression? Yes Cancer? No Additional hx: morbid obesity Surgical history: Previous Surgery?Y UMBILICAL HERNIA CYST REMOVED LT BREAST D & C Allergies: Coded Allergies: aspirin (12/29/16) latex (12/29/16) morphine (12/29/16) Family History: Family history: Postive for: DM. Negative for: CAD. Social History: Smoking Hx Tobacco: No Smoker: Former Smoker Type: Cigarettes Packs/day: N/A Are you exposed to second hand No Alcohol: Alcohol: No Hx of Drug Use: Drug Use? No Review of Systems: ENT No: ear ache, sore throat. Cardiovascular Positive for: edema. No: chest pain, palpitations. Respiratory Positive for: shortness of air. No: non-productive, productive cough (sputum). GI No: abdominal pain, constipation, diarrhea, nausea, vomitting. (female) No: frequency. Neurological Positive for: dizziness, weakness. No: headache, seizure, syncope. Musculoskeletal Positive for: extremity pain, joint pain, myalgias. Psychiatric Positive for: depression. Physical Exam: Vital signs: 1ST Vital Signs Result Date Time Pulse Ox 77 12/29 1531 B/P 115/85 12/29 1531 Temp 97.6 12/29 1531 Pulse 91 12/29 1531 Resp 26 12/29 1531 O2 Delivery OXYGEN 12/29 1854 O2 Flow Rate 2 12/29 2100 Exam: General appearance: alert, no acute distress, obese Eyes: anicteric Neck: non-tender Cardiovascular: regular rate & rhythm Respiratory: clear to auscultation (distant BS) ABD: no tenderness, bowel sounds present, obese Extremities: cool, no calf tenderness, bilateral arm and leg edema; unable to touch nose with right hand Musculoskeletal: strength (weak) Lab data: Labs: Laboratory Tests 12/30/16 0601: POC Glucose 165 H 12/29/16 1615: B-Natriuretic Peptide 38 12/29/16 1615: Sodium 135 L, Potassium 4.5, Chloride 109 H, Carbon Dioxide 46 *H, BUN 12, Creatinine 0.5 L, Estimated Creat Clear 341 H, Estimated GFR (MDRD) 125, Glucose 287 H, Calcium 8.6, Total Bilirubin 0.4, AST 14 L, ALT 18, Alkaline Phosphatase 74, Creatine Kinase 52, CK-MB (CK-2) Rel Index 4.8 H, CK and CKMB Interp 2.5, Troponin I < 0.02, Total Protein 5.8 L, Albumin 2.7 L, Globulin 3.1, Albumin/Globulin Ratio 0.9 L, WBC 7.1, RBC 3.93 L, Hgb 11.1 L, Hct 36.7 L, MCV 93.2, RDW 12.8, Plt Count 233, MPV 7.8, Gran % 89.6 H, Gran # 6.3, Total Counted 100, Lymphocytes % 5.6 L, Monocytes % 3.9, Eosinophils % 0.6, Basophils % 0.3, Neutrophils 89 H, Lymphocytes (Manual) 6 L, Lymphocytes # 0.4 L, Monocytes (Manual) 2, Monocytes # 0.3, Eosinophils # 0.0, Eosinophils # (Manual) 1, Basophils # 0.0, Atypical Lymphocytes 2, Platelet Estimate NORMAL, Hypochromasia 2+, Stomatocytes 1+, PUBS MCHC 30.4 L, MCH 28.3 12/29/16 1544: Urine Color YELLOW, Urine Appearance CLOUDY, Urine pH 6.0, Ur Specific [place] 1.015, Urine Protein NEGATIVE, Urine Ketones NEGATIVE, Urine Blood 1+ H, Urine Nitrate POSITIVE H, Urine Bilirubin NEGATIVE, Urine Urobilinogen 1.0, Ur Leukocyte Esterase 1+ H, Urine RBC NONE, Urine WBC 5-10, Ur Squamous Epith Cells OCC, Amorphous Sediment 2+, Urine Bacteria 3+, Urine Glucose 3+ H Microbiology 12/29 154 URINE CC: Urine Culture - RES Radiology results: Results: 12/29/16 CXR IMPRESSION: Very limited, acute pathology not excluded Diagnosis(es): 1. Hypoproteinemia 2. Generalized edema 3. UTI (urinary tract infection) 4. Intracranial meningioma Status: Chronic 5. Morbid obesity 6. Right arm weakness 7. IDDM (insulin dependent diabetes mellitus) 8. GERD (gastroesophageal reflux disease) 9. Arthritis Status: Chronic 10. Asthma Status: Chronic 11. Benign essential hypertension Status: Chronic Plan: will do MRi of the head today; Will have Liat Garcia see pt for extremity wraps for edema; dotson removal; regular meds ordered; will need CPAP (Ayla Jacome APRN) Date of admission: 12/29/16 Past Medical History: Medications: Active Scripts Hydroxyzine Pamoate (Hydroxyzine) 25 MG PO Q6HP PRN ANXIETY #60 CAPSULE Prov: 06/25/16 HYDROCODONE 5MG/APAP 325MG (Hydrocodon-Acetaminophen 5-325) 1 TAB PO TIDP PRN PAIN #90 TAB Prov: 06/25/16 ALBUTEROL-IPRATROPIUM (Iprat-Albut 0.5-3(2.5) MG/3 Ml) 3 ML IH QID #120 NEB Prov: 06/25/16 Potassium Chloride (Klor-Con M20) 20 MEQ PO BID #60 TAB Prov: 06/25/16 Discontinued Scripts Furosemide (Lasix 40MG) 40 MG PO DAILY #30 TAB Prov: 06/25/16 DC: 12/30/16 0855 Reported Medications Dexamethasone (Dexamethasone 4MG Tab) 4 MG PO DAILY Atorvastatin Calcium (Atorvastatin) 40 MG PO QHS ERGOCALCIFEROL (VITAMIN D2) (Vitamin D2) 50,000 IUNITS PO MONTHLY #5 CAPSULE FLUTICASONE/VILANTEROL (Breo Ellipta 100-25 Mcg INH) 1 POW IH DAILY Insulin Glargine (Lantus Insulin Vial) 60 UNITS SC DAILY Saccharomyces Boulardii (Florastor) 250 MG PO DAILY Fluticasone Propionate (Flonase 50 Mcg Nasal [place]) 1 SPRAY NA BID #1 BOT Hydralazine Hcl (Hydralazine 25MG Tab) 25 MG PO BID #60 Levofloxacin (Levofloxacin 500MG TAB) 500 MG PO DAILY #10 Clindamycin Hcl (Clindamycin 300MG) 300 MG PO TID Dimethicone (Remedy Skin Repair) 1.5 TP QSHIFT PRN DRY SKIN Gabapentin (Gabapentin 600MG) 600 MG PO QID IBUPROFEN MICRONIZED (IBUPROFEN 400MG) 400 MG PO Q6HP PRN PAIN OMEPRAZOLE MAGNESIUM (Prilosec 20MG) 20 MG PO DAILY Diagnosis(es): 1. Hypoproteinemia 2. Generalized edema 3. UTI (urinary tract infection) 4. Intracranial meningioma Status: Chronic 5. Morbid obesity 6. Right arm weakness 7. IDDM (insulin dependent diabetes mellitus) 8. GERD (gastroesophageal reflux disease) 9. Arthritis Status: Chronic 10. Asthma Status: Chronic 11. Benign essential hypertension Status: Chronic Plan: Pt seen and examined. Concur with above. Care management has approved proceeding with MRI to assess for progression of her meningioma as etiology of the progression of her neurologic symptoms. Will give 80mg of Lasix today after she has recieved the Albumin. (Tamra TRIPATHI,Ayden Rosas) at 0902 at 1518
[2016-12-30 09:45] VITALS: BP 129/69
[2016-12-30 16:16] VITALS: BP 143/80
[2016-12-30 20:11] VITALS: BP 146/76
[2016-12-30 21:45] VITALS: BP 146/76
[2016-12-31 04:01] VITALS: BP 130/75
[2016-12-31 08:00] VITALS: BP 176/81
[2016-12-31 08:09] VITALS: BP 176/81
--- NOTE | 2016-12-31 08:13 | DISCHARGE SUMMARY STANDARD ---
Discharge Summary (FCA2) Date of admission: 12/29/16 Date of discharge: 12/31/16 Problem List: 1. Hypoproteinemia 2. Generalized edema 3. UTI (urinary tract infection) 4. Intracranial meningioma 5. Morbid obesity 6. Right arm weakness 7. IDDM (insulin dependent diabetes mellitus) 8. GERD (gastroesophageal reflux disease) 9. Arthritis 10. Asthma 11. Benign essential hypertension History of present illness: Ms Diaz is a 61 year old female with a history of morbid obesity, DM, HTN, sleep apnea, CHF, GERD, chronic pain , and COPD who was sent from [facility] with complaints of increased swelling and "hurting all over". Family was insistent that she be seen. Patient states that she has not felt well for about 2 weeks. She has experience gradual decrease in mobility of her arms and hands and has not been able to feed herself. She was seen in the ER 1 week ago and returned back to . She continued to feel badly and had additional labs done which revealed a UTI. Culture showed Klebsiella and she was started on Levaquin. She continued to feel badly with stable VS and was afebrile. She returned to the ER 0n 12/29/16 and was again worked up with essentially normal laboratory evaluation. ER physician documented 3+ edema with normal kidney function and low albumin of 2.7. Her BNP was normal. Echo earlier this year showed preserved LV function. His assessment was that her edema was related to hypoproteinemia and recommended admission for IV albumin. She was thus admitted. Exam on admission: Refer to admission H&P Hospital Course: SHe was admitted to observation. On initial exam, she was noted to be alert and in no respiratory distress. SHe did have significant swelling of all extremities and was noted to have some increased weakness of her right arm. It was not immediately clear if this was simply a function of the increased edema in her upper extremeties or a manifestation of growth of her known meningioma. She recieved a total of 37.5 gm of albumin and then was diuresed with Lasix 80mg. She did have marked improvement in her edema wirh almost complete resolution of the swelling in her upper extremities. Attempt was made to repeat her brain MRI while she was here but our MRI machine would not accomodate her size and body habitus. SHe was continued on Levaquin for her UTI while hospitalized and will need continued antibiotics upon discharge. Laboratory data this visit: Laboratory Tests 12/31/16 0659: POC Glucose 185 H 12/30/16 2155: POC Glucose 210 H 12/30/16 1211: POC Glucose 172 H 12/30/16 0601: POC Glucose 165 H 12/29/16 1615: B-Natriuretic Peptide 38 12/29/16 1615: Sodium 135 L, Potassium 4.5, Chloride 109 H, Carbon Dioxide 46 *H, BUN 12, Creatinine 0.5 L, Estimated Creat Clear 341 H, Estimated GFR (MDRD) 125, Glucose 287 H, Calcium 8.6, Total Bilirubin 0.4, AST 14 L, ALT 18, Alkaline Phosphatase 74, Creatine Kinase 52, CK-MB (CK-2) Rel Index 4.8 H, CK and CKMB Interp 2.5, Troponin I < 0.02, Total Protein 5.8 L, Albumin 2.7 L, Globulin 3.1, Albumin/Globulin Ratio 0.9 L, WBC 7.1, RBC 3.93 L, Hgb 11.1 L, Hct 36.7 L, MCV 93.2, RDW 12.8, Plt Count 233, MPV 7.8, Gran % 89.6 H, Gran # 6.3, Total Counted 100, Lymphocytes % 5.6 L, Monocytes % 3.9, Eosinophils % 0.6, Basophils % 0.3, Neutrophils 89 H, Lymphocytes (Manual) 6 L, Lymphocytes # 0.4 L, Monocytes (Manual) 2, Monocytes # 0.3, Eosinophils # 0.0, Eosinophils # (Manual) 1, Basophils # 0.0, Atypical Lymphocytes 2, Platelet Estimate NORMAL, Hypochromasia 2+, Stomatocytes 1+, PUBS MCHC 30.4 L, MCH 28.3 12/29/16 1544: Urine Color YELLOW, Urine Appearance CLOUDY, Urine pH 6.0, Ur Specific [place] 1.015, Urine Protein NEGATIVE, Urine Ketones NEGATIVE, Urine Blood 1+ H, Urine Nitrate POSITIVE H, Urine Bilirubin NEGATIVE, Urine Urobilinogen 1.0, Ur Leukocyte Esterase 1+ H, Urine RBC NONE, Urine WBC 5-10, Ur Squamous Epith Cells OCC, Amorphous Sediment 2+, Urine Bacteria 3+, Urine Glucose 3+ H Microbiology Date/Time Procedure - Status Source Growth 12/30 1543 Urine Culture - RES URINE CC Discharge medications: Stop taking the following medications: Clindamycin Hcl (Clindamycin 300MG) 300 MG CAPSULE ORAL THREE TIMES A DAY Continue taking these medications: Fluticasone Propionate (Flonase 50 Mcg Nasal [place]) 16 GM SPRAY.SUSP 1 SPRAY Nasal TWICE A DAY Qty = 1 Gabapentin (Gabapentin 600MG) 600 MG TABLET 600 MILLIGRAM ORAL FOUR TIMES A DAY IBUPROFEN MICRONIZED (IBUPROFEN 400MG) 400 MG TABLET 400 MILLIGRAM ORAL EVERY 6 HOURS NEEDED as needed for PAIN Dexamethasone (Dexamethasone 4MG Tab) 4 MG TABLET 4 MILLIGRAM ORAL DAILY Atorvastatin Calcium (Atorvastatin) 40 MG TABLET 40 MILLIGRAM ORAL AT BEDTIME NIGHTLY OMEPRAZOLE MAGNESIUM (Prilosec 20MG) 20 MG TABLET.DR 20 MILLIGRAM ORAL DAILY ERGOCALCIFEROL (VITAMIN D2) (Vitamin D2) 50,000 UNIT CAPSULE 50,000 INT. UNITS ORAL MONTHLY Qty = 5 FLUTICASONE/VILANTEROL (Breo Ellipta 100-25 Mcg INH) 1 EACH BLST.W.DEV 1 POWDER INHALATION DAILY Insulin Glargine (Lantus Insulin Vial) 100 UNIT/ML VIAL 60 UNITS Subcutaneous Injection DAILY Hydroxyzine Pamoate (Hydroxyzine) 25 MG CAPSULE 25 MILLIGRAM ORAL EVERY 6 HOURS NEEDED as needed for ANXIETY Qty = 60 HYDROCODONE 5MG/APAP 325MG (Hydrocodon-Acetaminophen 5-325) 1 EACH TABLET 1 TABLET ORAL THREE TIMES A DAY NEEDED as needed for PAIN Qty = 90 ALBUTEROL-IPRATROPIUM (Iprat-Albut 0.5-3(2.5) MG/3 Ml) 3 ML AMPUL.NEB 3 MILLILITER INHALATION FOUR TIMES A DAY Qty = 120 Potassium Chloride (Klor-Con M20) 20 MEQ TAB.ER.PRT 20 Milliequivalent ORAL TWICE A DAY Qty = 60 Hydralazine Hcl (Hydralazine 25MG Tab) 25 MG TABLET 25 MILLIGRAM ORAL TWICE A DAY Qty = 60 Levofloxacin (Levofloxacin 500MG TAB) 500 MG TABLET 500 MILLIGRAM ORAL DAILY Qty = 10 Dimethicone (Remedy Skin Repair) 118 ML CREAM.ML. 1.5 TOPICAL EVERY SHIFT as needed for DRY SKIN Saccharomyces Boulardii (Florastor) 250 MG CAPSULE 250 MILLIGRAM ORAL DAILY Furosemide (Lasix 40MG) 40 MG TABLET 40 MILLIGRAM ORAL TWICE A DAY Qty = 30 Disposition: She is being discharged back to [facility]. Medications are as outlined above. Also recommend OT evaluation to assist with feeding herself. Diet will be low carb, high protein. at 0820
[2016-12-31 11:45] VITALS: BP 176/81
== END 2016-12-31 12:05 ==
LOC: ER 15:24 → 2ND 17:59
PROVIDERS: Emergency Medicine
DX: N39.0 Urinary tract infection, site not specified (principal); J44.9 Chronic obstructive pulmonary disease, unspecified; I10 Essential (primary) hypertension; E11.9 Type 2 diabetes mellitus without complications; R06.00 Dyspnea, unspecified; G47.33 Obstructive sleep apnea (adult) (pediatric); E66.01 Morbid (severe) obesity due to excess calories; Z68.44 Body mass index [BMI] 60.0-69.9, adult; D32.0 Benign neoplasm of cerebral meninges; E77.8 Other disorders of glycoprotein metabolism
CPT/HCPCS: G0378; P9047